=== PATIENT | female | born 1985 | race Asian ===

== ENCOUNTER 2017-05-10 18:05 | Inpatient (IN) | payer MEDICAID ==
[~2017-05-10] VITALS: Ht 160 cm; Wt 67.1 kg
[2017-05-10] MEDS ORDERED: PREN-546 PO (18:39)
[2017-05-10 18:55] VITALS: BP 111/65
[2017-05-10] MEDS ORDERED: OXYTOCIN 10 UNITS/ML VIAL IM SCH (19:00)
[2017-05-10] MEDS ORDERED: OXYTOCIN 20 UNITS/LR PREMIX 1,000 ML IV SCH (19:00)
[2017-05-10] MEDS: LACTATED RINGERS 1,000 ML IV SCH ×2 (19:39→22:09)
[2017-05-10 19:48] LABS: BASOPHILS # (AUTO) 0.1 K/uL (0.00-0.22); BASOPHILS % (AUTO) 0.9 % (0.0-2.0); EOSINOPHILS # (AUTO) 0.2 K/uL (0-0.4); EOSINOPHILS % (AUTO) 2.5 % (0.0-4.0); HEMATOCRIT 41.5 % (36-48); HEMOGLOBIN 13.8 g/dL (12.0-16.0); LYMPHOCYTES # (AUTO) 1.5 K/uL (2.5-16.5); MEAN CORPUSCULAR HEMOGLOBIN 30 pg (27-31); MEAN CORPUSCULAR HGB CONC 33 g/dL (33-37); MEAN CORPUSCULAR VOLUME 91 fL (80-94); MONOCYTES # (AUTO) 0.6 K/uL (0.8-1.0); MONOCYTES % (AUTO) 6.8 % (1.7-9.3); NEUTROPHILS # (AUTO) 6.8 K/uL (1.8-7.7); NEUTROPHILS % (AUTO) 73.8 % (42.2-75.2); PLATELET COUNT (AUTO) 185 K/uL (140-450); RED BLOOD CELL COUNT(AUTO) 4.54 MIL/uL (4.20-5.40); RED CELL DISTRIBUTION WIDTH 12.4 % (11.6-13.7); WHITE BLOOD COUNT (AUTO) 9.2 K/uL (4.8-10.8)
[2017-05-10 19:54] LABS: APPEARANCE,URINE CLEAR (CLEAR); BILIRUBIN,URINE NEGATIVE (NEGATIVE); BLOOD, URINE 3+ (NEGATIVE); COLOR,URINE YELLOW (YELLOW); LEUKOCYTE ESTERASE ,URINE NEGATIVE (NEGATIVE); NITRITE, URINE NEGATIVE (NEGATIVE); PH,URINE 6.5 (5.0-9.0); PROTEIN,URINE NEGATIVE (NEGATIVE); UGLUCOSE NEGATIVE (NEGATIVE); UROBILINOGEN,URINE 0.2 EU/dL (0.2 - 1)
[2017-05-10 19:56] LABS: BACTERIA,URINE FEW /HPF (None Seen); RBC,URINE 0-5 /HPF (0-5); SQUAMOUS EPITHELIAL CELL,UR 0-5 /LPF (0-3 (FEW)); WBC,URINE 0-3 /HPF (0-5)
[2017-05-10 20:30] LABS: HIV RAPID SCREEN NON-REACTIVE (NON REACTIV)
[2017-05-10] MEDS ORDERED: ROPIVACAINE 0.2%/NS PREMIX 250 ML EPI ONE (22:50)
[2017-05-10] MEDS ORDERED: OXYTOCIN 20 UNITS/LR PREMIX 1,000 ML IV ONE (23:44)
[2017-05-11] MEDS: LACTATED RINGERS 1,000 ML IV SCH (00:08)
[2017-05-11] MEDS ORDERED: OXYTOCIN 10 UNITS/ML VIAL ONE (07:52)
[2017-05-11 08:06] LABS: RAPID PLASMA REAGIN NON-REACTIVE (Non Reactiv)
[2017-05-11] MEDS ORDERED: BENZOCAINE/MENTHOL 20%-0.5% 60 GM CAN TP PRN (09:00)
[2017-05-11] MEDS ORDERED: TEMAZEPAM 15 MG CAP PO PRN (09:00)
[2017-05-11] MEDS ORDERED: METHYLERGONOVINE 0.2 MG/ML AMP IM PRN (09:00)
[2017-05-11] MEDS ORDERED: HYDROcodone/APAP 5/325 MG 1 TAB TAB PO PRN (09:00)
[2017-05-11] MEDS ORDERED: oxyCODONE/APAP 5/325 MG 1 TAB TAB PO PRN (09:00)
[2017-05-11] MEDS ORDERED: WITCH HAZEL 40 PAD PACKAGE TP PRN (09:00)
[2017-05-11] MEDS ORDERED: METHYLERGONOVINE 0.2 MG TAB PO PRN (09:00)
[2017-05-11] MEDS ORDERED: MEASLES, MUMPS, AND RUBELLA 1 VIAL SQVAC PRN (09:00)
[2017-05-11] MEDS ORDERED: OXYTOCIN 10 UNITS/ML VIAL IM PRN (09:00)
[2017-05-11] MEDS ORDERED: BISACODYL 10 MG SUPP RC PRN (09:00)
[2017-05-11] MEDS ORDERED: SODIUM PHOSPHATE 118 ML ENEM RC PRN (09:00)
--- NOTE | 2017-05-11 09:41 | NUR ---
PATIENT HAS BEEN SCREENED AND CATEGORIZED LOW NUTRITION RISK. PATIENT WILL BE SEEN WITHIN 7 DAYS OF ADMISSION. 05/17/[address]
[2017-05-11] MEDS ORDERED: oxyCODONE/APAP 5/325 MG 1 TAB TAB ONE (12:26)
[2017-05-11] MEDS ORDERED: HYDROcodone/APAP 5/325 MG 1 TAB TAB ONE (18:04)
[2017-05-11] MEDS ORDERED: DOCUSATE SOD/SENNA 50/8.6 MG 1 TAB PO SCH (21:00)
[2017-05-12 08:05] LABS: HEMATOCRIT 36.9 % (36-48); HEMOGLOBIN 12.2 g/dL (12.0-16.0)
[2017-05-12] MEDS ORDERED: DOCUSATE SOD/SENNA 50/8.6 MG 1 TAB PO SCH (21:00)
[2017-05-13] MEDS ORDERED: BISA-213 RC (12:27)
[2017-05-13] MEDS ORDERED: IBUP-1842 PO (12:30)
== END 2017-05-13 14:30 | disposition home or self-care (01) | DRG 560 ==
LOC: MLD 18:05 → MFCC 05-11 15:35
PROVIDERS: ADMIT Obstetrics & Gynecology; ATTEND Obstetrics & Gynecology
PROC: 10E0XZZ Delivery of Products of Conception, External Approach (ICD-10-PCS; principal; 2017-05-11)
PROC: 10907ZC Drainage of Amniotic Fluid, Therapeutic from Products of Conception, Via Natural or Artificial Opening (ICD-10-PCS; 2017-05-11)
PROC: 0HQ9XZZ Repair Perineum Skin, External Approach (ICD-10-PCS; 2017-05-11)
PROC: 3E0S3CZ (ICD-10-PCS; 2017-05-11)
PROC: 00HU33Z Insertion of Infusion Device into Spinal Canal, Percutaneous Approach (ICD-10-PCS; 2017-05-11)
DX: O70.0 First degree perineal laceration during delivery (principal); Z37.0 Single live birth; Z3A.39 39 weeks gestation of pregnancy; Z28.21 Immunization not carried out because of patient refusal
CPT/HCPCS: 36415; 51702; 59409; 81001; 85018; 85025; 86592; 86886; 86900; 86901; J2590; J2795; J7120